=== PATIENT | male | born 1970 | race American Indian/Alaskan Native ===

== ENCOUNTER 2019-07-06 09:17 | Emergency (ER) | payer SELFPAY ==
[2019-07-06 09:23] VITALS: BP 153/91
--- NOTE | 2019-07-06 09:36 | Emergency Department Report ---
HPI - General Chief Complaint: Earache Time Seen by Provider: 07/06/19 09:23 - HPI HPI: ED Screening room 48 y/o M p/w Left ear pain x 2 weeks. The pt admits to leaving an earbud in his left ear 2 weeks ago. Pt c/o pain and swelling inside left ear. Pt admits to drainage from left ear. ED Past Medical Hx - Past Medical History Previous Medical History?: Yes Additional medical history: Priaprism - Surgical History Past Surgical History?: Yes Additional Surgical History: Priaprism procedure - Family History Family history: no significant - Social History Smoking Status: Current Every Day Smoker Substance Use Type: Alcohol, Marijuana - Medications Home Medications: Home Medications Medication Instructions Recorded Confirmed Last Taken Type traMADoL [Ultram] 50 mg PO Q6HR PRN #16 tablet 04/07/16 04/10/16 1 Day Ago Rx ~04/09/16 50 Ciprofloxacin 0.2%(Nf) 0.25 ml AD BID #3.5 ml 07/06/19 Unknown Rx [Ciprofloxacin OTIC] traMADoL [Ultram] 50 mg PO Q6HR PRN #10 tablet 07/06/19 Unknown Rx ED Review of Systems ROS: Stated complaint: LEFT EAR PAIN Other details as noted in HPI Constitutional: chills ENT: ear pain Physical Exam - Physical Exam Vital Signs: Vital Signs 07/06/19 09:21 Temperature 98.2 F Pulse Rate 110 H Respiratory 20 Rate Blood Pressure 153/91 [Right] O2 Sat by Pulse 97 Oximetry Physical Exam: GEN: WD WN M sitting on chair in nAD HEENT: NCAT. Left canal occluded by earbud. Earbud removed with forceps to reveal inflammed canal . Unable to visualize TM. purulent d/c in canal ED Course Vital Signs 07/06/19 09:21 Temperature 98.2 F Pulse Rate 110 H Respiratory 20 Rate Blood Pressure 153/91 [Right] O2 Sat by Pulse 97 Oximetry - Foreign Body Removal Ear Location: ear canal (L) Foreign Body Suspected: other (earbud/headphone cover) Foreign Body Removed: yes Patient Tolerated Procedure: well Complications: none Critical care attestation.: If time is entered above; I have spent that time in minutes in the direct care of this critically ill patient, excluding procedure time. ED Disposition Clinical Impression: Foreign body in left ear, Otitis externa, left Disposition: DC-01 TO HOME OR SELFCARE Is pt being admited?: No Does the pt Need Aspirin: No Condition: Stable Instructions: Otitis Externa (ED) Prescriptions: Ciprofloxacin 0.2%(Nf) [Ciprofloxacin OTIC] 0.25 ml AD BID #3.5 ml traMADoL [Ultram] 50 mg PO Q6HR PRN #10 tablet PRN Reason: Pain Referrals: LIONEL JARAMILLO MD [Staff Physician] - 2-3 Days (Dr Jaramillo is an ENT. Please follow up with her for further evaluation) Time of Disposition: 09:41 (d/c)
== END 2019-07-06 09:44 | disposition home or self-care (01) ==
LOC: ED 09:17
DX: T16.2XXA Foreign body in left ear, initial encounter (principal); H60.92 Unspecified otitis externa, left ear; F17.200 Nicotine dependence, unspecified, uncomplicated; F12.10 Cannabis abuse, uncomplicated; Z79.899 Other long term (current) drug therapy; Y92.89 Other specified places as the place of occurrence of the external cause

== ENCOUNTER 2021-01-31 16:28 | Emergency (ER) | payer SELFPAY ==
[2021-01-31 20:41] VITALS: BP 133/87
--- NOTE | 2021-01-31 21:30 | Emergency Department Report ---
ED General Adult HPI - General Chief complaint: Extremity Injury, Upper Stated complaint: L THUMB INFECTION Time Seen by Provider: 01/31/21 20:44 Source: patient Mode of arrival: Ambulatory Limitations: No Limitations - History of Present Illness Initial comments: 50-year-old F [place] male just emerged from complaining of infection to his left arm for the last few days with dull throbbing pain of unknown etiology reports no fever, chills, sweats reports no numbness, no tingling, no pre- existing issues. -: Gradual Radiation: non-radiation Severity scale (0 -10): 8 Quality: aching, dull Consistency: constant Improves with: none Worsens with: none Associated Symptoms: denies other symptoms Treatments Prior to Arrival: none - Related Data Previous Rx's Medication Instructions Recorded Last Taken Type traMADoL [Ultram] 50 mg PO Q6HR PRN #16 tablet 04/07/16 1 Day Ago Rx ~04/09/16 50 Ciprofloxacin 0.2%(Nf) 0.25 ml AD BID #3.5 ml 07/06/19 Unknown Rx [Ciprofloxacin OTIC] traMADoL [Ultram] 50 mg PO Q6HR PRN #10 tablet 07/06/19 Unknown Rx Chlorhexidine Gluconate [Hibiclens] 10 ml TP BID #240 liquid 01/31/21 Unknown Rx cephALEXin [Keflex] 500 mg PO Q6HR #40 capsule 01/31/21 Unknown Rx Allergies Allergy/AdvReac Type Severity Reaction Status Date / Time No Known Allergies Allergy Verified 04/06/16 08:16 ED Review of Systems ROS: Stated complaint: L THUMB INFECTION Other details as noted in HPI Comment: All other systems reviewed and negative ED Past Medical Hx - Past Medical History Hx Asthma: No Hx HIV: No Additional medical history: Priaprism - Surgical History Additional Surgical History: Priaprism procedure - Social History Smoking Status: Current Every Day Smoker Substance Use Type: Alcohol, Marijuana - Medications Home Medications: Home Medications Medication Instructions Recorded Confirmed Last Taken Type traMADoL [Ultram] 50 mg PO Q6HR PRN #16 tablet 04/07/16 04/10/16 1 Day Ago Rx ~04/09/16 50 Ciprofloxacin 0.2%(Nf) 0.25 ml AD BID #3.5 ml 07/06/19 Unknown Rx [Ciprofloxacin OTIC] traMADoL [Ultram] 50 mg PO Q6HR PRN #10 tablet 07/06/19 Unknown Rx Chlorhexidine Gluconate [Hibiclens] 10 ml TP BID #240 liquid 01/31/21 Unknown Rx cephALEXin [Keflex] 500 mg PO Q6HR #40 capsule 01/31/21 Unknown Rx ED Physical Exam - General Limitations: No Limitations General appearance: alert, in no apparent distress - Head Head exam: Present: atraumatic, normocephalic - Eye Eye exam: Present: normal appearance, PERRL Pupils: Present: normal accommodation - ENT ENT exam: Present: normal exam, normal orophraynx, mucous membranes moist - Neck Neck exam: Present: normal inspection, full ROM - Respiratory Respiratory exam: Present: normal lung sounds bilaterally. Absent: respiratory distress - Cardiovascular Cardiovascular Exam: Present: regular rate, normal rhythm. Absent: systolic murmur, diastolic murmur, rubs, gallop - GI/Abdominal GI/Abdominal exam: Present: soft, normal bowel sounds - Rectal Rectal exam: Present: deferred - Extremities Exam Extremities exam: Present: normal inspection, tenderness, other (Swelling to left thumb paronychia present. No lymphangitis no deformity motion of the of the thumb and finger no Kanavel sign) - Back Exam Back exam: Present: normal inspection - Neurological Exam Neurological exam: Present: alert, oriented X3 - Psychiatric Psychiatric exam: Present: normal affect, normal mood - Skin Skin exam: Present: warm, dry, intact, normal color. Absent: rash ED Course Vital Signs 01/31/21 20:40 Temperature 99.1 F Pulse Rate 80 Respiratory 18 Rate Blood Pressure 133/87 O2 Sat by Pulse 95 Oximetry - Procedure Description Procedures done: PRE-OP DIAGNOSIS: Paronychia thumb. POST-OP DIAGNOSIS: Same. PROCEDURE: incision and drainage of paronychia. Performing Physician/advanced practice provider: Angi Crespo_. . PROCEDURE: A timeout protocol was performed prior to initiating the procedure. The area was prepared and draped in the usual, sterile manner. A linear incision was along the local skin lines was made and the purulent material expressed. The abcess was explored thoroughly and sequestered pockets were opened. Wound was irrigated with normal saline and bleeding was minimal. Packing: None. . Followup: The patient tolerated the procedure well without complications. Standard post-procedure care is explained and return precautions are given. Critical care attestation.: If time is entered above; I have spent that time in minutes in the direct care of this critically ill patient, excluding procedure time. ED Disposition Clinical Impression: Paronychia Disposition: 01 HOME / SELF CARE / HOMELESS Is pt being admited?: No Does the pt Need Aspirin: No Condition: Stable Instructions: Paronychia Prescriptions: Chlorhexidine Gluconate [Hibiclens] 10 ml TP BID #240 liquid cephALEXin [Keflex] 500 mg PO Q6HR #40 capsule Referrals: PRIMARY CARE, [Primary Care Provider] - 3-[address] [facility] [Provider Group] - 3-5 Days
== END 2021-01-31 22:09 | disposition home or self-care (01) ==
LOC: ED 16:28
DX: L03.012 Cellulitis of left finger (principal); F17.200 Nicotine dependence, unspecified, uncomplicated; F12.90 Cannabis use, unspecified, uncomplicated; Z79.899 Other long term (current) drug therapy
CPT/HCPCS: 99282

== ENCOUNTER 2021-11-17 13:15 | Emergency (ER) | payer SELFPAY | END 2021-11-18 05:05 | disposition left against medical advice (07) | LOC: ED 13:15 | DX: H60.00 Abscess of external ear, unspecified ear (principal); Z53.21 Procedure and treatment not carried out due to patient leaving prior to being seen by health care provider ==